=== PATIENT | female | born 1960 | race Caucasian/White ===

== ENCOUNTER 2020-07-06 14:32 | Emergency (ER) | payer OTHER, SELFPAY ==
[2020-07-06 14:40] VITALS: BP 154/77; PULSE 106; RESP 20; TEMP 36.7; O2SAT 97
--- NOTE | 2020-07-06 15:00 | ED.EAR ---
HPI - Ear Problem General Chief complaint: Ear Stated complaint: ear pain Time Seen by Provider: 07/06/20 14:50 Source: patient and RN notes reviewed Mode of arrival: ambulatory Limitations: no limitations History of Present Illness HPI Narrative: 59 year old female who presents to [facility] care with complaints of sinus congestion, drainage, headache pain and bilateral ear pain especially her left ear since last week which is progressively getting worse. Patient states that she has noted a cough but denies any acute dyspnea. Patient states that she has been taking antihistamines and decongestants for her symptoms with no improvements. MD Complaint: ear pain and other (headache, sinus drainage with occaisional cough and wheezing) Location: bilateral Discharge from ear: Reports no Associated symptoms ear: headache and rhinorrhea Treatment prior to arrival: other (antihistamines and decogestants) Related Data Home Medications Medication Instructions Recorded Confirmed paliperidone [Invega] 3 mg PO QAM 07/06/20 07/06/20 Allergies Allergy/AdvReac Type Severity Reaction Status Date / Time No Known Allergies Allergy Verified 07/06/20 14:45 Review of Systems Review of Systems: Narrative: CONSTITUTIONAL: Denies fever, chills, or sweats. EYES: Denies visual changes, redness, or discharge. ENT: Positive for rhinorrhea, congestion, no sore throat, bilateral ear pain worse left CARDIOVASCULAR: Denies chest pain, palpitations, or edema. RESPIRATORY: Positive cough denies acute dyspnea. GASTROINTESTINAL: Denies abdominal pain, nausea, vomiting, or diarrhea. GENITOURINARY: Denies dysuria or hematuria. SKIN: Denies rash or itching. MUSCULOSKELETAL: Denies back pain, joint pain, or myalgia. NEUROLOGIC: positive frontal headache,no numbness, or weakness. PSYCHIATRIC: Positive for history of anxiety or depression. All systems reviewed & are unremarkable except as noted in HPI and below [facility] Past Medical History Medical History (Updated 07/07/20 @ 00:00 by Chante Alfredo) Bipolar 1 disorder Chronic sinus complaints Surgical History Surgical History (Updated 07/06/20 @ 15:23 by Radha Lindsey NP) History of cataract extraction bilateral History of tubal ligation Family History Family History (Updated 07/06/20 @ 15:25 by Radha Lindsey NP) Mother Breast cancer Sibling Lung cancer Diabetes mellitus Heart disease Other Hypertension Social History Social History (Updated 07/06/20 @ 15:24 by Radha Lindsey NP) Smoking status: Current every day smoker Alcohol intake: current Alcohol use details: social Substance use: never Living arrangements: with family Gender identity (if verbalized by the patient): Female Comments At time of signature, agree with nursing past medical, surgical, social and family history. There is no relevant family history pertinent to the presenting complaint Exam Narrative: Exam Narrative: GENERAL: Well-appearing, well-nourished, and in no acute distress. HEAD: Normocephalic, atraumatic. EYES: PERRLA and EOMI. ENT: Nares red with clear rhinorrhea no epistaxis. Mucous membranes moist.TM;s with dull light reflex and stated ear pain some irritation to ear canals with no drainage noted, throat red with no lesions or exudates, post nasal drainage noted. NECK: Supple.no lymphadenopathy CHEST: Decreased to auscultation with some scattered wheezes. No acute respiratory distress SAO2 97% on room air. dry cough noted HEART: Regular rate and rhythm. No murmur heard. Normal peripheral pulses. ABDOMEN: Soft, nontender, nondistended, normal active bowel sounds. EXTREMITIES: Normal range of motion. No edema. SKIN: Warm, dry, no rash. NEURO: No focal deficits. Alert and oriented x3. Course Vital Signs Vital signs: Vital Signs Temperature 36.7 C 07/06/20 14:40 Pulse Rate 106 H 07/06/20 14:40 Respiratory Rate 20 07/06/20 14:40 Blood Pressure 154/77 H 07/06/20
== END 2020-07-06 15:23 | disposition home or self-care (01) ==
PROVIDERS: Emergency Provider Registered Nurse
DX: J06.9 Acute upper respiratory infection, unspecified (principal); R09.89 Other specified symptoms and signs involving the circulatory and respiratory systems; H60.503 Unspecified acute noninfective otitis externa, bilateral; F17.200 Nicotine dependence, unspecified, uncomplicated; F32.9 Major depressive disorder, single episode, unspecified
CPT/HCPCS: 99213; G0463